=== PATIENT | female | born 1970 | race Caucasian/White ===

== ENCOUNTER 2017-07-20 21:15 | Inpatient (IN) | payer MEDICAID ==
[~2017-07-20] VITALS: Ht 172.7 cm; Wt 98.4 kg
--- NOTE | 2017-07-20 21:50 | NUR ---
PT TO ER BED 16. PT BIB SELF FROM HOME, PT C/O LEFT LOWER ABD PAIN AND PER PT SHE IS IN THE MIDDLE OF IVF. 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 VSS/RESP EVEN UNLABORED/NAD NOTED/SKIN WARM AND DRY/DENIES N-V-D/AFEBRILE/AOX4. AWAITING MD CARY.
[2017-07-20] MEDS ORDERED: HYDROMORPHONE INJ 2 MG/ML DISP.SYRIN IV ONE (22:30)
[2017-07-20] MEDS ORDERED: ONDANSETRON HCL/PF 4 MG/2 ML VIAL IVP ONE (22:30)
--- NOTE | 2017-07-20 22:30 | NUR ---
URINE SPECIMEN OBTAINED AND SENT TO THE LAB.
--- NOTE | 2017-07-20 22:35 | NUR ---
18G IV TO R AC X 1 ATTEMPT USING ASEPTIC TECH, BLOOD HANDED OVER TO LAB AT THE BEDSIDE. IV FLUSHES EASILY WITH NS. NO S/S INFILTRATION NOTED.
[2017-07-20] MEDS ORDERED: HYDROMORPHONE INJ 2 MG/ML DISP.SYRIN ONE (22:36)
[2017-07-20] MEDS ORDERED: ONDANSETRON HCL/PF 4 MG/2 ML VIAL ONE (22:37)
[2017-07-20 22:58] LABS: CALCIUM, SERUM 9.1 mg/dL (8.5-10.1); CREATININE 0.7 mg/dL (0.6-1.3); POTASSIUM 3.7 mmol/L (3.5-5.1)
[2017-07-20 22:59] LABS: APPEARANCE,URINE CLEAR (CLEAR); BILIRUBIN,URINE NEGATIVE (NEGATIVE); BLOOD, URINE NEGATIVE Ery/uL (NEGATIVE); COLOR,URINE YELLOW (YELLOW); KETONES,URINE NEGATIVE (NEGATIVE); LEUKOCYTE ESTERASE ,URINE TRACE (NEGATIVE); NITRITE, URINE NEGATIVE (NEGATIVE); PROTEIN,URINE TRACE mg/dl (NEGATIVE); UGLUCOSE NEGATIVE (NEGATIVE); UROBILINOGEN,URINE 0.2 EU/dL (0.2)
[2017-07-20 23:02] LABS: INR 0.9 (0.87-1.13)
[2017-07-20 23:10] LABS: BACTERIA,URINE Few /HPF (None Seen); MUCUS,URINE Many /LPF (None Seen); RBC,URINE 0-2 /HPF (0-2); SQUAMOUS EPITHELIAL CELL,UR Many /HPF (None Seen)
[2017-07-20 23:12] LABS: BASOPHILS # (AUTO) 0.1 /CMM (0.0-0.2); BASOPHILS % (AUTO) 0.4 % (0.0-2.0); EOSINOPHILS % (AUTO) 0.5 % (0.0-6.0); HEMATOCRIT 35 % (33-45); HEMOGLOBIN 12.1 g/dL (11.5-14.8); LYMPHOCYTES # (AUTO) 1.3 /CMM (0.8-4.8); LYMPHOCYTES % (AUTO) 7.3 % (20.0-44.0); MEAN CORPUSCULAR HGB CONC 34 g/dl (31.0-36.0); MEAN CORPUSCULAR VOLUME 82 fL (82-100); MONOCYTES # (AUTO) 0.5 /CMM (0.1-1.30); MONOCYTES % (AUTO) 2.7 % (2.0-12.0); NEUTROPHILS # (AUTO) 15.3 /CMM (1.8-8.9); NEUTROPHILS % (AUTO) 89.1 % (43.0-81.0); PLATELET COUNT (AUTO) 299 /CMM (150-450); RDW COEFFICIENT OF VARIATION 14.7 (11.5-15.0); WHITE BLOOD COUNT (AUTO) 17.3 K/uL (4.3-11.0)
[2017-07-20 23:13] LABS: BILIRUBIN,DIRECT 0.1 mg/dL (0.0-0.2); BILIRUBIN,TOTAL 0.3 mg/dL (0.2-1.0); TOTAL PROTEIN, SERUM 7.9 g/dL (6.4-8.2)
--- NOTE | 2017-07-20 23:30 | NUR ---
ASSISTED ULTRASOUND AT BEDSIDE.
[2017-07-21] MEDS ORDERED: HYDROMORPHONE INJ 2 MG/ML DISP.SYRIN ONE (01:29)
[2017-07-21] MEDS ORDERED: HYDROMORPHONE 1 MG/1 ML DISP.SYRIN IV ONE (01:30)
[2017-07-21] MEDS ORDERED: IOHEXOL-300 100 ML VIAL IV ONE (01:45)
[2017-07-21] MEDS ORDERED: IV NS 0.9% 250 ML IV ONE (01:45)
--- NOTE | 2017-07-21 01:50 | NUR ---
PT TO CT VIA STRETCHER. VSS.
--- NOTE | 2017-07-21 01:53 | NUR ---
REPORT GIVEN TO BRIANNA MARTINEZ FOR JAVY.
[2017-07-21] MEDS ORDERED: ACETAMINOPHEN 325 MG TABLET PO PRN (02:00)
[2017-07-21] MEDS ORDERED: MAGNESIUM HYDROXIDE 30 ML UDC PO PRN (02:00)
[2017-07-21] MEDS ORDERED: ONDANSETRON HCL/PF 4 MG/2 ML VIAL IVP PRN (02:00)
[2017-07-21] MEDS ORDERED: HYDROCODONE/APAP 10/325MG 1 EA TABLET PO PRN (02:00)
[2017-07-21] MEDS ORDERED: Z GUARD REMEDY 2 OZ OINT TP PRN (02:00)
[2017-07-21] MEDS ORDERED: MAG HYDROX/AL HYDROX/SIMETH 30 ML UDC PO PRN (02:00)
[2017-07-21] MEDS ORDERED: ZOLPIDEM TARTRATE 5 MG TABLET PO PRN (02:00)
[2017-07-21] MEDS ORDERED: IV NS 0.9% 1,000 ML IV PRN (02:00)
[2017-07-21] MEDS ORDERED: HYDROMORPHONE INJ 2 MG/ML DISP.SYRIN IV PRN (02:00)
[2017-07-21] MEDS ORDERED: HYDROCODONE/APAP 5/325MG 1 EACH TABLET PO PRN (02:00)
--- NOTE | 2017-07-21 02:07 | NUR ---
PT BACK FROM CT.
[2017-07-21 03:00] VITALS: BP 106/63
--- NOTE | 2017-07-21 03:01 | NUR ---
PT TRANSPORTED VIA STRETCHER WITH EMT TO MS 206-2. VSS.
--- NOTE | 2017-07-21 03:15 | NUR ---
MS RN NOTE RECEIVED PATIENT FROM ER VIA GURNEY, PATIENT IS ALERT AND ORIENTEDX3, AMBULATORY, DENIES RESPIRATORY DISTRESS AND COMPLAINS OF LOWER ABDOMINAL PAIN, TENDERNESS NOTED. IV ON LEFT AC IS PATENT AND INTACT, WILL CONNECT TO THE FLUID. SKIN IS INTACT, NO EDEMA NOTED. SRX2, BED IN LOW POSITION, CALL LIGHT WITHIN REACH, WILL CONTINUE TO MONITOR THE PATIENT.
--- NOTE | 2017-07-21 06:47 | NUR ---
MS RN NOTE PATIENT IS RESTING IN BED, NO RESPIRATORY DISTRESS AND NO COMPLAINS OF PAIN REPORTED SINCE ADMISSION. IV ON LEFT AC IS PATENT AND INTACT. ALL NEEDS MET, CALL LIGHT WITHIN REACH, SRX2. WILL ENDORSE TO DAY SHIFT NURSE FOR JAVY.
--- NOTE | 2017-07-21 07:30 | NUR ---
RN OPEN NOTES RECEIVED REPORT FROM SERVICE CENTER TECHNICIAN NURSE. PATIENT IS IN BED, AWAKE AND ALERT. ORIENTED TO NAME, PLACE AND TIME. NO SIGNS AND SYMPTOMS OF DISTRESS. BED IN LOW POSITION, LOCKED AND TWO SIDE RAILS ARE UP FOR SAFETY. CALL LIGHT WITHIN REACH. WILL CONTINUE TO MONITOR PATIENT
[2017-07-21 08:00] VITALS: BP 110/62
--- NOTE | 2017-07-21 12:40 | NUR ---
MS HARD ROCK MINER NOTES DISCHARGED PATIENT IN STABLE CONDITION. VITAL SIGNS WITHIN NORMAL LIMITS. IV LINE WAS REMOVED. ID BAND WAS REMOVED. ALL NEEDS WERE MET. EXITCARE INSTRUCTIONS PROVIDED TO THE PATIENT. FOLLOW UP APPOINTMENT PROVIDED TO THE PATIENT WITH DR BABCOCK 07/22/10 AT 1100. PATIENT HAS ALL HER BELONGINGS. [place] PRESCRIPTION GIVEN TO THE PATIENT. PATIENT LEFT VIA PRIVATE CAR. [facility] DALE ESCORTED PATIENT OUTSIDE OF THE HOSPITAL VIA WHEELCHAIR.
== END 2017-07-21 12:40 | disposition home or self-care (01) | DRG 532 ==
LOC: ER 21:16 → MEDSG2 07-21 01:56
DX: N83.511 Torsion of right ovary and ovarian pedicle (principal); E66.01 Morbid (severe) obesity due to excess calories; D25.9 Leiomyoma of uterus, unspecified; D72.829 Elevated white blood cell count, unspecified; Z68.33 Body mass index [BMI] 33.0-33.9, adult
CPT/HCPCS: 36415; 76856-TC; 80048-TC; 80076-TC; 81000-TC; 84702-TC; 85025-TC; 85730-TC; 87081-TC; 87086-TC; A4606; J1170; J2405; J7030; J7050; Q9967; Z7610

== ENCOUNTER 2017-10-04 11:28 | Emergency (ER) | payer MEDICAID ==
[~2017-10-04] VITALS: Ht 170.2 cm; Wt 85.7 kg
[2017-10-04 11:40] VITALS: BP 155/131
[2017-10-04] MEDS ORDERED: IBUPROFEN 600 MG TABLET PO ONE ×2 (11:53→12:00)
== END 2017-10-04 12:35 | disposition home or self-care (01) ==
LOC: ER 11:29
DX: S62.001A Unspecified fracture of navicular [scaphoid] bone of right wrist, initial encounter for closed fracture (principal); Z98.890 Other specified postprocedural states; W18.39XA Other fall on same level, initial encounter; Y93.89 Activity, other specified; Y92.092 Bedroom in other non-institutional residence as the place of occurrence of the external cause; Y99.8 Other external cause status
CPT/HCPCS: 29125; 73110; 73130; 99284; A4606; Z7610